=== PATIENT | male | born 1995 | race Caucasian/White ===

== ENCOUNTER → 2019-08-29 | Outpatient (CLI) | payer OTHER | END | disposition home or self-care (01) | LOC: EDSTATUS 10:30 → CFH 13:21 → EDSTATUS 13:30 | PROVIDERS: ATTEND Physician Assistant | DX: E04.9 Nontoxic goiter, unspecified (principal) | CPT/HCPCS: 76536 ==

== ENCOUNTER 2019-10-10 09:02 | Outpatient (CLI) | payer OTHER | END 2019-10-10 23:59 | disposition home or self-care (01) | LOC: CFH 09:02 | PROVIDERS: ATTEND Physician Assistant | DX: K76.0 Fatty (change of) liver, not elsewhere classified (principal) | CPT/HCPCS: 76700 ==